=== PATIENT | female | born 1990 | race American Indian/Alaskan Native ===

== ENCOUNTER 2020-12-25 08:38 | Emergency (ER) | payer SELFPAY ==
[2020-12-25] MEDS ORDERED: IBUPROFEN 800 MG TAB PO ONE (10:08)
[2020-12-25] MEDS ORDERED: TETANUS,DIPH,PERTUSS(ACELL) VACCINE 0.5 ML SYRINGE IM ONE (10:08)
--- NOTE | 2020-12-25 10:38 | XRay Report ---
LEFT FOOT 2 VIEWS INDICATION / CLINICAL INFORMATION: pain r/o glass foreign body COMPARISON: None available. FINDINGS: BONES / JOINT(S): No acute fracture or subluxation. No significant arthritis. SOFT TISSUES: No radiopaque foreign bodies are seen. ADDITIONAL FINDINGS: None. Signer Name: Lucas Patel MD Signed: 12/25/2020 10:33 AM Workstation Name: [id number]
--- NOTE | 2020-12-25 10:39 | XRay Report ---
BILATERAL HAND RADIOGRAPHS 2 VIEWS RIGHT AND LEFT INDICATION / CLINICAL INFORMATION: pain r/o glass foreign body COMPARISON: None available. FINDINGS: BONES / JOINT(S): No acute fracture or subluxation. No significant arthritis. SOFT TISSUES: No radiopaque foreign bodies are seen. ADDITIONAL FINDINGS: None. Signer Name: Lucas Patel MD Signed: 12/25/2020 10:34 AM Workstation Name: [id number]
--- NOTE | 2020-12-25 10:39 | XRay Report ---
LEFT ELBOW 2 VIEWS INDICATION / CLINICAL INFORMATION: pain r/o glass foreign body COMPARISON: None available. FINDINGS: BONES / JOINT(S): No acute fracture or subluxation. No significant arthritis. SOFT TISSUES: There is IV in the left antecubital fossa. No radiopaque foreign bodies are seen otherw ise. ADDITIONAL FINDINGS: None. Signer Name: Lucas Patel MD Signed: 12/25/2020 10:35 AM Workstation Name: [id number]
[2020-12-25 11:18] LABS: Hematocrit 34.7 % (30.3-42.9); Hemoglobin 12.4 gm/dl (10.1-14.3); Mean Corpuscular HGB Conc 36 % (30-34); Mean Corpuscular Volume 95 fl (79-97); Platelet Count 259 K/mm3 (140-440); Red Blood Count 3.67 M/mm3 (3.65-5.03); Red Cell Distribution Width 13.6 % (13.2-15.2)
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
[2020-12-25 11:44] LABS: Alanine Aminotransferase 27 units/L (7-56); Albumin 3.6 g/dL (3.9-5); BUN/Creatinine Ratio 10; Blood Urea Nitrogen 9 mg/dL (7-17); Calcium 8.5 mg/dL (8.4-10.2); Hemolysis Index 7
[2020-12-25 12:16] LABS: Bilirubin,Urine NEG (Negative); Blood,Urine NEG (Negative); Color,Urine Yellow (Yellow); Mucus,Urine 2+ /HPF; Protein,Urine <15 mg/dL mg/dL (Negative); Urobilinogen,Urine < 2.0 mg/dL (<2.0)
[2020-12-25 12:19] LABS: HCG Qualitative,Urine Negative (Negative)
[2020-12-25 12:26] LABS: Total Cells Counted 100
[2020-12-25 12:27] LABS: Anisocytosis 1+
--- NOTE | 2020-12-25 13:23 | Cat Scan Report ---
CT ABDOMEN AND PELVIS WITH CONTRAST INDICATION: lower GI bleed. TECHNIQUE: Axial CT images were obtained through the abdomen and pelvis after 100 cc IV contrast. All CT scans at this location are performed using CT dose reduction for ALARA by means of automated exposure contr ol. COMPARISON: None available. FINDINGS: LOWER CHEST: No significant abnormality. LIVER: No significant abnormality. GALLBLADDER: No significant abnormality. BILE DUCTS: No significant abnormality. PANCREAS: No significant abnormality. SPLEEN: No significant abnormality. ADRENALS: No significant abnormality. RIGHT KIDNEY and URETER: No significant abnormality. LEFT KIDNEY and URETER: No significant abnormality. STOMACH and SMALL BOWEL: No significant abnormality. COLON: No significant abnormality. APPENDIX: No significant abnormality. PERITONEUM: No free fluid. No free air. No fluid collection. LYMPH NODES: No significant adenopathy. AORTA and ARTERIES: No significant abnormality. IVC and VEINS: No significant abnormality. URINARY BLADDER: No significant abnormality. REPRODUCTIVE ORGANS: No significant abnormality. ADDITIONAL FINDINGS: None. SKELETAL SYSTEM: No significant abnormality. IMPRESSION: 1. No significant abnormality. Signer Name: Marlo Caal MD Signed: 12/25/2020 1:19 PM Workstation Name: [id number]
[2020-12-25 13:43] VITALS: BP 132/81
== END 2020-12-25 13:44 | disposition home or self-care (01) ==
LOC: ED 08:38
DX: S61.412A Laceration without foreign body of left hand, initial encounter (principal); S60.511A Abrasion of right hand, initial encounter; M79.672 Pain in left foot; M25.522 Pain in left elbow; K92.1 Melena; Y04.8XXA Assault by other bodily force, initial encounter; Y93.89 Activity, other specified; Y92.89 Other specified places as the place of occurrence of the external cause; Y99.8 Other external cause status
CPT/HCPCS: 36415; 73070; 73120; 73620; 74177; 80053; 81001; 81025; 82271; 83690; 84703; 85007; 85025; 90471; 90715; 99284; Q9967